=== PATIENT | male | born 2000 | race Caucasian/White ===

== ENCOUNTER 2022-09-26 10:32 | Outpatient (CLI) | payer OTHER, SELFPAY | END 2022-09-26 10:33 | disposition home or self-care (01) | LOC: INJ CL 10:34 | PROVIDERS: PCP Specialist; Visit Provider Family Medicine | DX: M54.16 Radiculopathy, lumbar region (principal); M51.26 Other intervertebral disc displacement, lumbar region | CPT/HCPCS: 64483; J1100; Q9966 ==

== ENCOUNTER 2022-10-19 15:00 | Outpatient (RCR) | payer OTHER, SELFPAY | END 2023-03-01 23:59 | disposition home or self-care (01) | PROVIDERS: PCP Specialist; Visit Provider Specialist | DX: M54.50 Low back pain, unspecified (principal); Z51.89 Encounter for other specified aftercare | CPT/HCPCS: 97110; 97112; 97140; 97161; 97535 ==